=== PATIENT | male | born 1960 | race Caucasian/White ===

== ENCOUNTER 2023-07-22 02:12 | Observation (INO) | payer OTHER, SELFPAY ==
[2023-07-22] VITALS (12 sets, daily range): BP systolic 110–148; BP diastolic 65–85; PULSE 68–101; RESP 12–18; TEMP 36.2–37.2; O2SAT 92–100; BMI 26.5; BMI 25.9
--- NOTE | ~2023-07-22 | CT_ITS ---
CT of the Abdomen and Pelvis: Indication: Abdominal pain Technique: 2.5 mm axial scans were obtained through the abdomen and pelvis following intravenous adm inistration of 100 cc of Omnipaque 350. Dose reduction technique was used on this scan by utilizing a utomated exposure control and iterative reconstruction technique. The dose-length product (DLP) was 6 86.91 mGy-cm. Findings: Scans through the lung bases demonstrate bibasilar atelectatic change. The liver, spleen, pancreas, gallbladder, adrenals and kidneys are within normal limits. No evidence of aortic aneurysm. No lymphadenopathy. No bowel obstruction or bowel wall thickening. Appendix is dilated to 14 mm with questionable minimal periappendiceal stranding. No abscess or free air. Images through the pelvis were performed. Urinary bladder unremarkable. Prostate gland and seminal ve sicles are unremarkable. No ascites. Impression: Findings suspicious for very early acute appendicitis, particularly involving the distal tip. Correla te clinically. No abscess or free air. Reviewed, dictated and finalized at location . ER [facility] Impression: Findings suspicious for very early acute appendicitis, particularly involving t he distal tip. Correlate clinically. No abscess or free air.
[2023-07-22 03:05] LABS: Appearance Urine Clear (Clear); Bilirubin Urine Negative (Negative); Blood Urine Negative (Negative); Color Urine Yellow (Yellow); Glucose Urine UA Negative (Negative); Ketones Urine Trace mg/dL (Negative); Leukocyte Esterase Ur Negative LEU/UL (Negative); Nitrate Urine Negative (Negative); Protein Urine Negative (Negative); Specific Grav Ur 1.028 (1.001-1.035); pH Urine 5.5 (5.0-9.0)
[2023-07-22 03:08] LABS: Add Urine Microscopic? NO
[2023-07-22 03:22] LABS: Basophils Absolute Auto 0.1 K/mm3 (0.0-0.1); Basophils Percent Auto 0.5 % (0.2-1.2); Eosinophils Percent Auto 0.1 % (0-4.4); Hematocrit 46.4 % (42.0-52.0); Hemoglobin 15.5 g/dL (14.0-18.0); Immature Granulocyte Absolute 0.04 K/mm3 (0.00-0.031); Immature Granulocyte Percent A 0.3 % (0-0.5); Lymphocytes Absolute Auto 0.67 K/mm3 (0.9-3.2); Lymphocytes Percent Auto 4.7 % (18.3-44.2); Mean Corpuscular HGB Conc 33.4 g/dl (32-36); Mean Corpuscular Hemoglobin 30.6 pg (26-34); Mean Corpuscular Volume 91.5 fl (80-100); Mean Platelet Volume 10.6 fl (7.4-10.4); Monocytes Absolute Auto 0.6 K/mm3 (0.1-0.6); Monocytes Percent Auto 4.3 % (2.6-8.5); Neutrophils Absolute Auto 12.9 K/mm3 (1.3-6.7); Neutrophils Percent Auto 90.1 % (45.5-73.1); Platelet Count Result 196 k/mm3 (150-375); Red Blood Count 5.07 M/mm3 (4.6-6.20); Red Cell Distribution Width 13.4 % (11.5-14.5); White Blood Count 14.4 K/mm3 (4.5-10.0)
[2023-07-22 03:32] LABS: Alanine Aminotransferase 33 U/L (6-50); Albumin Level 4.7 g/dL (3.5-5.1); Alkaline Phosphatase 101 U/L (38-126); Anion Gap 10 mmol/L (8-16); Aspartate Amino Transferase 30 U/L (17-59); Bilirubin,Total 0.6 mg/dL (0.2-1.3); Blood Urea Nitrogen 20 mg/dL (9-20); Calcium 9.5 mg/dL (8.4-10.2); Carbon Dioxide 24 mmol/L (22-30); Chloride 103 mmol/L (98-107); Estimated CRCL calculation 75 ml/min; Estimated Glomerular Filt Rate > 60; Glucose 136 mg/dL (65-110); Lipase 82 U/L (23-300); Potassium 4.5 mmol/L (3.4-5.0); Sodium 137 mmol/L (137-145)
[2023-07-22] MEDS: ONDANSETRON INJ 4 MG/2 ML VIAL IV PUSH (03:43)
[2023-07-22] MEDS: SODIUM CHLORIDE 0.9% IV 3,000 ML 999 ML IV CONT (03:43)
[2023-07-22] MEDS: HYDROmorphone HCL INJ (*CRX) 1 MG/ML SYR 0.5 MG IV PUSH (03:45)
--- NOTE | 2023-07-22 05:05 | ED.GENADULT ---
HPI - General Adult General Chief complaint: Abdominal Pain Stated complaint: right lower abd pain, nausea Time Seen by Provider: 07/22/23 02:39 History of Present Illness HPI narrative: this is a 63-year-old male presenting ED with a chief complaint of right lower quadrant abdominal pain. pain started this morning, is a sharp pain that is nonradiating 5 out 10 intensity and getting worse. He has never had pain like this before, is worse with movement there are no alleviating factors. Associated with nausea vomiting and several loose stools. Denies fever. Related Data Allergies Allergy/AdvReac Type Severity Reaction Status Date / Time tetracycline AdvReac Rash Verified 07/22/23 02:22 [facility] Past Medical History Medical History Asthma Exam Narrative: APPEARANCE: No apparent distress. Head: atraumatic. EYES: EOMI, NOSE: Atraumatic NECK: Trachea midline RESPIRATORY: No increased rate of breathing CARDIOVASCULAR: RRR, ABDOMINAL: tenderness to palpation the right lower quadrant with voluntary guarding. MUSCULOSKELETAl: No obvious deformities NEURO: Alert. Moving 4/4 extremities SKIN:: Warm, dry. Normal color PSYCHIATRIC: Normal affect Course Vital Signs Vital signs: Vital Signs Temperature 98.1 F 07/22/23 02:16 Pulse Rate 97 07/22/23 02:16 Respiratory Rate 15 07/22/23 02:16 Blood Pressure 133/80 07/22/23 02:16 Pulse Oximetry 98 07/22/23 02:16 Oxygen Delivery Room Air 07/22/23 02:16 Temperature 97.8 F 07/22/23 02:47 Pulse Rate 95 07/22/23 04:53 Respiratory Rate 14 07/22/23 04:53 Blood Pressure 125/72 07/22/23 04:53 Pulse Oximetry 92 07/22/23 04:53 Oxygen Delivery Room Air 07/22/23 02:16 Medical Decision Making [facility] Narrative Medical decision making narrative: -Course: 63-year-old male presenting with right lower quadrant pain. CT showed early uncomplicated appendicitis. Patient started on abx, iv fluids, pain and antiemetic medication. Patient admitted to surgery. -DDX includes but is not limited to: appendicitis, colitis, epiploic appendagitis gastroenteritis, gallbladder disease,diverticulitis -Co-morbidities complicating care: mild asthma -Social determinants of health: patient works as a auto club safety program coordinator -Independent interpretation of studies: White count 14. metabolic panel normal. Urine not indicative of infection. CT abdomen pelvis is concerning for early appendicitis. No abscess or free air. -Discussion of Management/Consultants: Ricardo -Interventions: 3 L NS, Dilaudid .5mg, Zofran 4mg, Pip-tazo -Shared decision making / Disposition: admitted. Vital Signs Vital Signs: Vital Signs Temperature 98.1 F 07/22/23 02:16 Pulse Rate 97 07/22/23 02:16 Respiratory Rate 15 07/22/23 02:16 Blood Pressure 133/80 07/22/23 02:16 Pulse Oximetry 98 07/22/23 02:16 Oxygen Delivery Room Air 07/22/23 02:16 Temperature 97.8 F 07/22/23 02:47 Pulse Rate 95 07/22/23 04:53 Respiratory Rate 14 07/22/23 04:53 Blood Pressure 125/72 07/22/23 04:53 Pulse Oximetry 92 07/22/23 04:53 Oxygen Delivery Room Air 07/22/23 02:16 Lab Data 07/22/23 03:17 07/22/23 03:17 Labs: Lab Results 07/22/23 07/22/23 07/22/23 Range/Units 02:57 03:17 05:11 WBC 14.4 H (4.5-10.0) K/mm3 RBC 5.07 (4.6-6.20) M/mm3 Hgb 15.5 (14.0-18.0) g/dL Hct 46.4 (42.0-52.0) % MCV 91.5 (80-100) fl MCH 30.6 (26-34) pg MCHC 33.4 (32-36) g/dl RDW 13.4 (11.5-14.5) % Plt Count 196 (150-375) k/mm3 MPV 10.6 H (7.4-10.4) fl Immature Gran % (Auto) 0.3 (0-0.5) % Neut % (Auto) 90.1 H (45.5-73.1) % Lymph % (Auto) 4.7 L (18.3-44.2) % [place] % (Auto) 4.3 (2.6-8.5) % Eos % (Auto) 0.1 (0-4.4) % Baso % (Auto) 0.5 (0.2-1.2) % Lymph # (Auto) 0.67 L (0.9-3.2) K/mm3 [place] # (Auto) 0.6 (0.1-0.6) K
[2023-07-22 05:25] LABS: Lactic Acid Reflex 1.5 mmol/L (0.7-2.0)
[2023-07-22] MEDS: PIPERACILLN/TAZ 3.375GM/NS50ML 3.375 GM/50 ML BAG IVPB (05:52)
[2023-07-22] MEDS: LACTATED RINGERS 1,000 ML 125 ML IV CONT (06:21)
[2023-07-22] MEDS: PANTOPRAZOLE SODIUM IV 40 MG VIAL IV PUSH (06:32)
--- NOTE | 2023-07-22 06:45 | ADMGEN ---
This patient, Connor Cee, was admitted to [facility] Surg Room 326-01. Patient/family oriented to hospital policies and general routines including ID bracelet, bed and alarms, visiting hours, pain management, procedures, bathroom and other care routines, personal items, smoking policy, room service/diet, and visiting hours. Information on how to activate the Rapid Response Team has been discussed. Patient/Family are encouraged to report perceived risks to care and to ask questions if they do not understand what they are told or what they should do.
--- NOTE | 2023-07-22 07:07 | PC.NURSE ---
Pre-op called for patient status at 0650 with surgery scheduled for 0730. OR staff requesting to transport patient. Admission will be postponed until after surgery.
--- NOTE | 2023-07-22 07:19 | PM.IMHP ---
H&P: HPI History of Present Illness Date/Time: 07/22/23 07:19 Chief Complaint: Acute appendicitis Narrative: The patient is a 63-year-old male presenting to the emergency department complaining of right lower quadrant abdominal pain. The patient reports the pain is been present since early this morning and has been consistently getting worse. The patient reports the pain is localized to the right lower quadrant and is constant, sharp. The patient reports this is worse with movement. The patient denies previous episodes. Review of Systems Review of Systems: All systems reviewed & are unremarkable except as noted in HPI and below PMFSH Past Medical History Medical History Asthma Comments PSH - no abd surgery FH - no CRC, IBS SH - no tob, IVDA Meds Home Medications and Allergies Allergies Allergy/AdvReac Type Severity Reaction Status Date / Time tetracycline AdvReac Rash Verified 07/22/23 02:22 Vital Signs Vital Signs - 24 hr 07/22/23 02:16 07/22/23 02:47 07/22/23 03:28 Temperature 36.7 C 36.6 C Pulse Rate 97 81 77 Respiratory Rate 15 16 16 Blood Pressure 133/80 130/65 122/77 Pulse Oximetry 98 96 97 Oxygen Delivery Room Air 07/22/23 04:53 Temperature Pulse Rate 95 Respiratory Rate 14 Blood Pressure 125/72 Pulse Oximetry 92 Oxygen Delivery Exam Const: General: cooperative, no acute distress and uncomfortable HENMT: Head: normal to inspection, normocephalic and atraumatic Eyes: General: appearance normal, both eyes and all related structures Neck: Neck: normal visual inspection, full ROM and no lymphadenopathy Resp: Auscultation: clear to auscultation bilaterally Cardio: Rate: regular rate Rhythm: regular rhythm GI: Inspection: normal to inspection and distended GI Palp: Yes abdominal tenderness, Yes Soft to palpation, Yes Tenderness to palpation present (GI), No Guarding due to palpation present (GI) and No Rigid due to palpation Skin: General skin exam: normal color and no rashes or lesions noted Neuro: General: patient oriented x3 and CN's II-XI intact bilaterally Extrem: General: normal to inspection and full ROM H&P: Results Labs Labs: Short CBC 07/22/23 Range/Units 03:17 WBC 14.4 H (4.5-10.0) K/mm3 Hgb 15.5 (14.0-18.0) g/dL Hct 46.4 (42.0-52.0) % Plt Count 196 (150-375) k/mm3 BMP 07/22/23 03:17 Sodium 137 Potassium 4.5 Chloride 103 Carbon Dioxide 24 BUN 20 Creatinine 1.00 Glucose 136 H Calcium 9.5 Liver Function 07/22/23 Range/Units 03:17 Total Bilirubin 0.6 (0.2-1.3) mg/dL AST 30 (17-59) U/L ALT 33 (6-50) U/L Alkaline Phosphatase 101 (38-126) U/L Albumin 4.7 (3.5-5.1) g/dL Urine 07/22/23 Range/Units 02:57 Urine Color Yellow (Yellow) Urine Appearance Clear (Clear) Urine pH 5.5 (5.0-9.0) Ur Specific [place] 1.028 (1.001-1.035) Urine Protein Negative (Negative) mg/dL Urine Glucose (UA) Negative (Negative) mg/dL Imaging CT scan - abdomen: My impression: acute appendicitis Assessment and Plan Assessment and plan (1) Acute appendicitis: Code(s): K35.80 - Unspecified acute appendicitis Status: Acute Assessment and Plan: NPO, IV antibiotics, OR for urgent appendectomy
--- NOTE | 2023-07-22 07:19 | WPDANESEPPF ---
Anes - Initial Pre Proc Eval Procedure: Operation Date: 07/22/23 10:15 Proposed Procedures p Laparoscopic Appendectomy - Marielle Silva MD Date/Time: 07/22/23 07:19 Surgeon: Marielle Silva MD Pre Op Diagnosis: Appendicitis Patient Data Age: 63 Gender: M Height: 1.83 m Weight: 89.3 kg Last Vital Signs Temp 36.6 C 07/22/23 02:47 Pulse 95 07/22/23 04:53 Resp 14 07/22/23 04:53 BP 125/72 07/22/23 04:53 Pulse Ox 92 07/22/23 04:53 O2 Del Method Room Air 07/22/23 02:16 Allergies Allergy/AdvReac Type Severity Reaction Status Date / Time tetracycline AdvReac Rash Verified 07/22/23 02:22 Laboratory Tests 07/22/23 07/22/23 07/22/23 02:57 03:17 05:11 WBC 14.4 H K/mm3 (4.5-10.0) RBC 5.07 M/mm3 (4.6-6.20) Hgb 15.5 g/dL (14.0-18.0) Hct 46.4 % (42.0-52.0) MCV 91.5 fl (80-100) MCH 30.6 pg (26-34) MCHC 33.4 g/dl (32-36) RDW 13.4 % (11.5-14.5) Plt Count 196 k/mm3 (150-375) MPV 10.6 H fl (7.4-10.4) Immature Gran % (Auto) 0.3 % (0-0.5) Neut % (Auto) 90.1 H % (45.5-73.1) Lymph % (Auto) 4.7 L % (18.3-44.2) [place] % (Auto) 4.3 % (2.6-8.5) Eos % (Auto) 0.1 % (0-4.4) Baso % (Auto) 0.5 % (0.2-1.2) Lymph # (Auto) 0.67 L K/mm3 (0.9-3.2) [place] # (Auto) 0.6 K/mm3 (0.1-0.6) Eos # (Auto) 0.0 K/mm3 (0-0.3) Baso # (Auto) 0.1 K/mm3 (0.0-0.1) Abs Immat Gran (auto) 0.04 H K/mm3 (0.00-0.031) Absolute Neuts (auto) 12.9 H K/mm3 (1.3-6.7) Absolute Nucleated RBC 0.0 K/mm3 (0.0-0.012) Nucleated RBC % 0.0 % (0.0-0.2) Sodium 137 mmol/L (137-145) Potassium 4.5 mmol/L (3.4-5.0) Chloride 103 mmol/L (98-107) Carbon Dioxide 24 mmol/L (22-30) Anion Gap 10 mmol/L (8-16) BUN 20 mg/dL (9-20) Creatinine 1.00 mg/dL (0.7-1.3) Estim Creat Clear Calc 75 ml/min Estimated GFR > 60 (59 - ) Glucose 136 H mg/dL (65-110) Lactic Acid 1.5 mmol/L (0.7-2.0) Calcium 9.5 mg/dL (8.4-10.2) Total Bilirubin 0.6 mg/dL (0.2-1.3) AST 30 U/L (17-59) ALT 33 U/L (6-50) Alkaline Phosphatase 101 U/L (38-126) Total Protein 8.0 g/dL (6.3-8.2) Albumin 4.7 g/dL (3.5-5.1) Lipase 82 U/L (23-300) Urine Color Yellow (Yellow) Urine Appearance Clear (Clear) Urine pH 5.5 (5.0-9.0) Ur Specific [place] 1.028 (1.001-1.035) Urine Protein Negative mg/dL (Negative) Urine Glucose (UA) Negative mg/dL (Negative) Urine Ketones Trace H mg/dL (Negative) Ur Blood (Man) Negative (Negative) Urine Nitrate Negative (Negative) Urine Bilirubin Negative (Negative) Urine Urobilinogen 1.0 mg/dL (<2.0) Leukocyte Esterase Rfl Negative B[place]O/UL (Negative) Patient hx anesthesia problems: none Family hx anesthesia problems: none Results Review: All pre-operative results and documents have been reviewed as part of the pre-operative evaluation. [facility] Past Medical History Medical History Asthma Anes - Eval Final PreProcedure Day of Procedure 07/22/23 07:19 Patient weight: overweight Heart: regular rate and rhythm Lungs: clear to auscultation Airway: Mallampati scale class II Neurological: alert and oriented Last oral intake: >/= 8 hours ASA classification: II Emergent: yes Anesthetic plan: proceed Anesthesia type and monitoring: general ETT and standard monitoring Results Review: All pre-operative results and documents have been reviewed as part of the pre-operative
--- NOTE | 2023-07-22 07:22 | WPDHPUPDATE1 ---
History and Physical Update Update Date/Time: 07/22/23 07:22 History and Physical has been reviewed, including an updated exam of the patient. There are NO changes in the patient's condition. Risks, benefits, and alternatives have been discussed and questions answered. Patient agrees to proceed with procedure.
[2023-07-22] MEDS: LACTATED RINGERS 1,000 ML 30 ML IV CONT ×2 (07:31→08:29)
--- NOTE | 2023-07-22 07:44 | SUR.PREOP ---
[address] Silva only hair removal no scrub needed per Dr Mast no EKG needed prior to surgery. two cell phones of patient taken to recovery room to be return after surgery to patient
[2023-07-22] MEDS: BUPIVACAINE/EPINEPHRINE 0.5% 50 ML VIAL 30 ML INFILTRATE (08:00)
--- NOTE | 2023-07-22 08:12 | W.PM.PROC2 ---
Procedure Note - Detailed Date of Procedure 07/22/23 Pre-op Diagnosis Appendicitis Post-op Diagnosis Same Procedure Performed laparoscopic appendectomy Surgeon Marielle Silva MD Anesthesia General Indications 63-year-old male presenting to the emergency department with right lower quadrant abdominal pain. Workup consistent with appendicitis. Findings acute appendicitis no evidence of perforation Description of Procedure The patient was taken to the operating room and placed in the supine position. After adequate induction of general anesthesia, the patient was prepped and draped in the normal sterile fashion. A time-out was then done to verify the patient's identity, as well as the procedure being performed. I began by making a 5 mm incision in the infraumbilical region, through this a Veress needle was placed in the peritoneal cavity. CO2 gas was then insufflated and after adequate pneumoperitoneum was achieved the Veress needle was removed. Then placed a 5 mm Optiview trocar under direct visualization into the peritoneal cavity. I then insufflated through this trocar site and the endoscope was placed into the trocar. Under direct visualization, placed 2 further 5 mm suprapubic port as well as an additional 12 mm port in the left lower abdomen. At this point identified the cecum, I retracted the cecum both medially and superiorly allowing me to expose the appendix. The appendix was noted to be dilated and inflamed especially towards the tip. The appendix was noted to be very adherent to the right lateral sidewall as well as the ileum. I was able to bluntly dissect the appendix from these adhesions. I then was able to locate the base of the appendix with the cecum. I created a window with the [place] dissector between the appendix itself and the mesoappendix. I then transected the mesoappendix with a white vascular staple load. The Endo-MILO was then reloaded with a blue staple load and I transected the base of the appendix. Once the specimen was completely detached, an endo-pouch was placed into the 12 mm port site and the specimen was removed through the endo-pouch. The appendiceal specimen will be sent to pathology for further review. I then copiously irrigated the right lower quadrant. Hemostasis was noted at both staple lines no other pathology was seen in this area. I then moved the camera to the suprapubic port to check our its port of entry. No iatrogenic injury or other pathology was noted in the upper abdomen. I then closed the 12 mm port site with a Kel[place] code and 0 Vicryl suture under direct visualization. At this point, the abdomen was desufflated and all ports were removed. All port sites were closed with 4 Monocryl subcuticular suture. Dermabond was placed on all wounds. The patient tolerated the procedure well and was extubated in the operating room postop. He will be sent to the recovery room in stable condition. Estimated Blood Loss 10 Drains No Packing No Pathology Yes Complications No immediate complications Condition Stable Disposition PACU [facility] Billing Surgery - Charge Forward: Surgery Billing
[2023-07-22] MEDS: HYDROcodone/acetaminophen (*CRX) 5-325 MG TABLET 1 TAB PO (14:05)
--- NOTE | 2023-07-24 07:34 | PM.DS ---
DS: Admitting Diagnosis Discharge Date 07/22/23 Admitting Diagnosis Acute appendicitis DS: Discharge Diagnosis Discharge Diagnosis (1) Acute appendicitis: Code(s): K35.80 - Unspecified acute appendicitis Status: Acute Assessment and Plan: status post laparoscopic appendectomy, please see full operative report for details, continue routine postoperative care, home with p.o. analgesia and Colace, await path and follow-up in 2 weeks (2) Asthma: Code(s): J45.909 - Unspecified asthma, uncomplicated Status: Acute Assessment and Plan: stable continue home meds DS: Summary Hospital Course Reason for hospitalization: acute appendicitis Hospital Course: The patient is a 63-year-old male presenting to the emergency department complaining of right lower quadrant abdominal pain. Workup in the emergency department, including CT scan, was significant for acute appendicitis. Given these findings, the patient was admitted to the surgical service. Upon evaluation, it was decided the patient would undergo urgent appendectomy. The patient was brought to the operating room and laparoscopic appendectomy was performed, please see full operative report for details of procedure. Postoperatively, the patient did well and was transferred back to the floor. He was able to tolerate a diet and was up and ambulating without difficulty. This time he will be sent home with instructions for local wound care, p.o. analgesia, and Colace. The patient will follow up with me in 2 weeks. Status at Discharge Functional status at discharge: independent ambulation Overall status at discharge: patient is progressing back to baseline Time Spent with Patient Time attestation: Total time spent providing and/or coordinating discharge services: Time spent: Less than 30 minutes Exam Const: General: cooperative, comfortable and no acute distress Resp: Auscultation: clear to auscultation bilaterally Cardio: Rate: regular rate Rhythm: regular rhythm GI: Inspection: normal to inspection, distended and incision GI Palp: Yes abdominal tenderness, Yes Soft to palpation, Yes Tenderness to palpation present (GI), No Guarding due to palpation present (GI) and No Rigid due to palpation DS: Data Data Completed and Pending Completed studies during hospitalization: Pending at discharge 07/22/23 07:56 Surgical [PTH] Routine Discharge Plan Discharge Attending physician on discharge: Marielle Lambert Consulting providers: Eliazar Kennedy; Valentin Mast; Cipriano Rodriguez Discharging Clinician: Marielle Lambert Anticipated Discharge Date/Time: 07/22/23 13:00 Patient Disposition: Home, Self-Care Activity: no shower, as tolerated and other - see discharge instructions Diet: as tolerated Wound Care Instructions: incision open to air Discharge Instructions: DISCHARGE INSTRUCTION SHEET FOR HERNIA, GALLBLADDER AND APPENDIX SURGERIES DR. LAMBERT PATIENT TO TAKE HOME 1. May shower in 24 hours, no soaking in bath x 2weeks. 2. Call office for: Wound increasingly painful or bleeding Vomiting Fever of greater than 101 degrees 3. If no bowel movement for three days, take 1 oz. (30 ml) Milk of Magnesia or MiraLax 17g 1 to 2 times daily. 4. No heavy lifting > 10-15 pounds x 6 weeks for hernia repairs and 2 weeks for laparoscopic cholecystectomy or appendectomy. 5. No driving for 3 days or while taking narcotic pain medications. 6. Ice to surgical site for 48 hours (30 min on, then 30 min off). 7. Up walking 10-30 minutes three times per day. 8. Resume previous home medications. 9. Follow-up 10-14 days in office for wound check or as previously scheduled. ([phone]) 10. Oral pain medications prescription to be sent to pharmacy. Take Tylenol 500mg every 6 hours and Ibuprofen 600mg every 6 hours for the first 2 days, then as needed.
== END 2023-07-22 16:40 | disposition home or self-care (01) ==
LOC: ANHED 06:32 → ANH3MEDSUR 06:44
PROVIDERS: Physician Assistant; Admitting Provider Surgery; Emergency Provider Emergency Medicine; Visit Provider Surgery
PROC: 0DTJ4ZZ Resection of Appendix, Percutaneous Endoscopic Approach (ICD-10-PCS; CPT 44970; principal; 2023-07-22 10:15)
DX: K35.80 Unspecified acute appendicitis (principal); J45.909 Unspecified asthma, uncomplicated; E66.3 Overweight; Z68.26 Body mass index [BMI] 26.0-26.9, adult
CPT/HCPCS: 44970; 36415; 74177; 80053; 81003; 83605; 83690; 85025; 88304; 96361; 96365; 96375; 99285; A9270; C9113; G0378; J0330; J1100; J1170; J2250; J2405; J2543; J2704; J3010; J7030; J7120; Q9967